=== PATIENT | female | born 1980 | race Caucasian/White ===

== ENCOUNTER 2018-03-27 12:52 | Emergency (ER) | payer OTHER ==
[2018-03-27 13:33] VITALS: RESP 18; TEMP 98.9
--- NOTE | 2018-03-27 14:21 | RAD ---
Date of service: 03/27/2018 PROCEDURE: Left Ankle Radiographs. HISTORY: ankle pain s/p trauma COMPARISON: None FINDINGS: BONES: No acute fracture. Previous internal fixation distal fibular fracture. JOINTS: Normal. No osteoarthritis. Ankle mortise maintained. Talar dome intact SOFT TISSUES: Normal. OTHER FINDINGS: None. IMPRESSION: No acute findings
--- NOTE | 2018-03-27 14:38 | ED PDOC ---
Arrival/HPI - General Historian: Patient <Warren Monroe A - Last Filed: 03/27/18 14:57> <Sharon Hathaway - Last Filed: 03/30/18 02:21> - General Chief Complaint: Lower Extremity Problem/Injury Time Seen by Provider: 03/27/18 13:40 - History of Present Illness Narrative History of Present Illness (Text): 03/27/18 14:38 37yo morbidly obese female with no pmhx who present with complaint of left ankle pain/swelling. she reports history of ankle fracture in 2014 s/p ORIF. states she fell and landed on the ankle 3days ago. she is ambulating. states the ankle is swollen and painful. Did not take any medication. denies any other complaint. (Warren Monore A) Past Medical History - Provider Review Nursing Documentation Reviewed: Yes - Infectious Disease Hx of Infectious Diseases: None - Reproductive Menopause: No - Cardiac Hx Cardiac Disorders: No - Pulmonary Hx Respiratory Disorders: No - Psychiatric Hx Substance Use: No - Surgical History Hx Section: Yes (x4) Hx Orthopedic Surgery: Yes (L Ankle Surgery) - Anesthesia Hx Anesthesia: No <Warren Monroe A - Last Filed: 03/27/18 14:57> Family/Social History - Physician Review Nursing Documentation Reviewed: Yes Family/Social History: Unknown Family HX Smoking Status: Never Smoked Hx Alcohol Use: No Hx Substance Use: No <Warren Monroe A - Last Filed: 03/27/18 14:57> Allergies/Home Meds <Warren Monroe A - Last Filed: 03/27/18 14:57> <Sharon Hathaway - Last Filed: 03/30/18 02:21> Allergies/Adverse Reactions: Allergies No Known Allergies Allergy (Verified 11/15/15 02:54) Review of Systems - Physician Review All systems were reviewed & negative as marked: Yes - Review of Systems Constitutional: Normal Eyes: Normal ENT: Normal Respiratory: Normal Cardiovascular: Normal Gastrointestinal: Normal Genitourinary Female: Normal Musculoskeletal: Arthralgias (Left ankle pain) Skin: Normal Neurological: Normal Endocrine: Normal Hemo/Lymphatic: Normal Psychiatric: Normal <Warren Monroe A - Last Filed: 03/27/18 14:57> Physical Exam Vital Signs Reviewed: Yes Temperature: Afebrile Blood Pressure: Normal Pulse: Regular Respiratory Rate: Normal Appearance: Positive for: Well-Appearing, Non-Toxic, Comfortable Pain Distress: None Mental Status: Positive for: Alert and Oriented X 3 - Systems Exam Head: Present: Atraumatic, Normocephalic Pupils: Present: PERRL Extroacular Muscles: Present: EOMI Conjunctiva: Present: Normal Mouth: Present: Moist Mucous Membranes Neck: Present: Normal Range of Motion Respiratory/Chest: Present: Clear to Auscultation, Good Air Exchange. No: Respiratory Distress, Accessory Muscle Use Cardiovascular: Present: Regular Rate and Rhythm, Normal S1, S2. No: Murmurs Abdomen: No: Tenderness, Distention, Peritoneal Signs Back: Present: Normal Inspection Upper Extremity: Present: Normal Inspection. No: Cyanosis, Edema Lower Extremity: Present: NORMAL PULSES, Normal ROM, Tenderness (Left lateral malleolus), Swelling (Left lateral malleolus), Neurovascularly Intact. No: Edema Neurological: Present: GCS=15, CN II-XII Intact, Speech Normal Skin: Present: Warm, Dry, Normal Color. No: Rashes Psychiatric: Present: Alert, Oriented x 3, Normal Insight, Normal Concentration <Warren Monroe A - Last Filed: 03/27/18 14:57> Vital Signs Temp Pulse Resp BP Pulse Ox 03/27/18 14:54 76 18 110/70 100 03/27/18 13:29 98.9 F 88 18 106/55 L 99 Medical Decision Making <Warren Monroe A - Last Filed: 03/27/18 14:57> <Sharon Hathaway - Last Filed: 03/30/18 02:21> ED Course and Treatment: 03/27/18 14:57 PT in ED for stated history. She was ambulatory. Left ankle xray No acute fracture Result DW the pt. Caleb wrap applied, Crutches given. Advised to RICE ankle Referred to ortho. (Warren Monroe A) - RAD Interpretation Radiology Orders: 03/27/18 13:40 ANKLE LEFT 3 VIEWS ROUTINE [RAD] Stat - PA / [employer] / Resident Statement MD/DO has reviewed & agrees with the documentation as recorded. <Sharon Hathaway - Last Filed: 03/30/18 02:21> Disposition/Present on Arrival - Present on Arrival Any Indicators Present on Arrival: No History of DVT/PE: No History of Uncontrolled Diabetes: No Urinary Catheter: No History of Decub. Ulcer: No History Surgical Site Infection Following: None - Disposition Have Diagnosis and Disposition been Completed?: Yes Disposition Time: 14:40 Patient Plan: Discharge <Warren Monroe - Last Filed: 03/27/18 14:57> <Sharon Hathaway - Last Filed: 03/30/18 02:21> - Disposition Diagnosis: Ankle pain Disposition: HOME/ ROUTINE Condition: STABLE Discharge Instructions (ExitCare): Ankle Sprain Additional Instructions: Rest, elevate ankle follow up with your doctor/Orthopedist Return to ED for any new or worsening symptoms Prescriptions: Ibuprofen [Motrin Tab] 600 mg PO Q6 #15 tab Referrals: Saurabh Saleem MD [Staff Provider] - Follow up with primary Forms: [employer] [facility] (Portuguese), WORK NOTE
[2018-03-27 14:55] VITALS: BP 110/70; PULSE 76; O2SAT 100
== END 2018-03-27 15:21 | disposition home or self-care (01) ==
LOC: ED 12:52
DX: M25.572 Pain in left ankle and joints of left foot (principal)